=== PATIENT | male | born 1960 | race Caucasian/White ===

== ENCOUNTER → 2017-05-13 | Outpatient (CLI) | payer OTHER ==
[~2017-05-13] MED LIST: DILA4TAB10 PO; MS C15TA7 PO; MS C200T2 PO; OXYC-360 PO; OXYC1TAB63 PO; PROM25SU8 PO; PROM25TA10 PO; VITA1000 PO; XANA1TAB2 PO; Z.0.NO CURRENT MEDS; ZOFR4TAB PO
== END ==
LOC: PHPRE 13:13
PROVIDERS: ATTEND Pain Medicine Interventional Pain Medicine
DX: Z00.00 Encounter for general adult medical examination without abnormal findings (principal)

== ENCOUNTER → 2017-05-27 | Day surgery (SDC) | payer OTHER ==
[~2017-05-27] VITALS: Ht 185.4 cm; Wt 63.5 kg
[~2017-05-27] MED LIST changes: +BUPIVACAINE/EPINEPHRINE 0.5% PF 30 ML VIAL ONE; +CHLORHEXIDINE GLUCONATE 2 % 1 PACK (2 CLOTHS) TOPICAL PRN; +HYDROmorphone HCL PF 2 MG/ML VIAL ONE; +KETAMINE HCL 500 MG/10 ML VIAL ONE; +LACTATED RINGER'S 1000 ML IV PRN; +METOPROLOL TARTRATE 25 MG TAB PO PRN; +MIDAZOLAM HCL 5 MG/ML VIAL (1 ML) ONE; -OXYC-360 PO; -OXYC1TAB63 PO; +POVIDONE IODINE 5% (ANTISEPSIS KIT) 4 APPLICATIONS EACH NARE PRN; -PROM25SU8 PO; -PROM25TA10 PO; +SODIUM CHLORID 0.9% 500 ML IV PRN; -Z.0.NO CURRENT MEDS; +ceFAZolin 1,000 MG/NS 100 ML IV SCH; +fentaNYL 100 MCG/HR PATCH T-DERMAL ONE
[2017-05-27 13:05] VITALS: TEMP 98.4
--- NOTE | 2017-05-27 13:37 | MP ---
cc: JACI FALCON M.D. DATE OF SURGERY 05/27/2017 DATE OF 1960 PROCEDURE Removal of spinal cord stimulating electrodes ([employer] Octrodes x2) PREPROCEDURE DIAGNOSIS Cancer with intractable chest pain. POSTPROCEDURE DIAGNOSIS Cancer with intractable chest pain. PROCEDURE NOTE IV was started in the holding area. The patient was given IV antibiotics. Surgical consent was signed. The surgical site was marked. The patient was taken to the operating room and placed in the prone position, sedated and monitored by anesthesia. The distal extension wires were cut with sterile scissors in the patient's left flank. Then the lumbar area was prepped with Chloraprep draped with sterile drapes. The lumbar incision was infiltrated with 0.5% Marcaine containing epinephrine. The previous incision was reopened. The distal extension wires were freed and their anchoring devices was cut and removed intact. The incision was irrigated with Betadine and the closure took place with 3-0 Monocryl in the subcuticular tissue and 3-0 nylon on the skin. The incisions were covered with sterile adhesive dressing and the patient was taken to the recovery room with stable vital signs. W. MD KUNAL Peres/HOWARD /1:13 PM /1:35 PM
[2017-05-27 14:45] VITALS: BP 119/75; PULSE 76; RESP 14; O2SAT 97
== END | disposition home or self-care (01) ==
LOC: PHSDC 10:47
PROVIDERS: ATTEND Pain Medicine Interventional Pain Medicine
DX: G89.3 Neoplasm related pain (acute) (chronic) (principal); G90.59 Complex regional pain syndrome I of other specified site; R07.9 Chest pain, unspecified; C78.00 Secondary malignant neoplasm of unspecified lung
CPT/HCPCS: 01936; 63661; J0690; J1170; J2250; J7120